=== PATIENT | male | born 1965 | race Caucasian/White ===

== ENCOUNTER 2019-01-22 11:12 | Emergency (ER) | payer MEDICARE ==
[2019-01-22] MEDS ORDERED: Ketorolac 30 MG/ML SDV IM ONE (12:14)
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
[2019-01-22 20:44] VITALS: BP 175/98
== END 2019-01-22 14:17 | disposition home or self-care (01) ==
LOC: FB.ED 11:12
DX: M54.42 Lumbago with sciatica, left side (principal); F17.210 Nicotine dependence, cigarettes, uncomplicated; J44.9 Chronic obstructive pulmonary disease, unspecified; G89.29 Other chronic pain; Z79.899 Other long term (current) drug therapy; Z88.8 Allergy status to other drugs, medicaments and biological substances
CPT/HCPCS: 36415; 81001; 85379; 86140; 87086; 96372; 99283; J1885

== ENCOUNTER 2019-01-24 17:09 | Emergency (ER) | payer MEDICARE ==
[2019-01-24] MEDS ORDERED: HYDROmorphone 2 MG/ML SDV IM ONE (17:41)
[2019-01-24] MEDS ORDERED: Ondansetron 4 MG Tab.DIS PO SCH (17:45)
--- NOTE | 2019-01-24 17:53 | EDM.PDOC ---
ED HPI GENERAL MEDICAL PROBLEM - General Chief Complaint: Lower Extremity Injury/Pain Stated Complaint: PAIN Time Seen by Provider: 01/24/19 17:10 Source of Information: Reports: Patient History Limitations: Reports: No Limitations - History of Present Illness INITIAL COMMENTS - FREE TEXT/NARRATIVE: Cruz is a 53-year-old man was seen by myself 01/22/19 for 10/10 back pain that radiates down his left leg. Pain has been chronic and was exacerbated 2 weeks ago and progressively got worse. He was seen by Dr. Meadows last week and physical therapy was prescribed. On Saturday01/21/19 patient was seen in physical therapy. His back pain has not improved and it got much worse. Onset saw ED and he was treated with tramadol and advised to use NSAIDs and follow with Dr. Meadows 7 days. Pain has not improved he returns this evening because has more back pain. He has no loss of sensation in his left lower extremity. He has good urine continence. It's difficult for him to walk because the severe pain in left leg. He has avoided walking because the pain relates down his left leg to his heel. He does not abuse drugs. No history of aneurysm. He is a smoker. 1ppd. left ankle, tailbone, lower back and hip Pain Score (Numeric/FACES): 10 - Related Data Allergies Allergy/AdvReac Type Severity Reaction Status Date / Time aspirin AdvReac Intermediate Dizziness Verified 01/24/19 17:14 Home Meds: Home Meds Acetaminophen [Tylenol Extra Strength] 1,000 mg PO ASDIRECTED PRN 04/06/15 [ History] Ascorbic Acid [Vitamin C] 1,000 mg PO DAILY 04/06/15 [History] Cyclobenzaprine [Flexeril] 10 mg PO BEDTIME PRN 04/06/15 [History] Multivitamin with Minerals [Multiple Vitamin] 1 tab PO DAILY 04/06/15 [History] Omeprazole 20 mg PO DAILY 04/06/15 [History] Venlafaxine [Effexor] 150 mg PO BEDTIME 04/06/15 [History] Vitamin B Complex [B Complex] 1 each PO 1800 04/06/15 [History] Ibuprofen 600 mg PO TID PRN 01/22/19 [History] Ketorolac [Toradol] 10 mg PO Q6H PRN #16 tab 01/22/19 [Rx] atorvaSTATin [Lipitor] 20 mg PO BEDTIME 01/22/19 [History] predniSONE [Prednisone] 40 mg PO DAILY #10 tablet 01/22/19 [Rx] traMADol [Ultram] 50 mg PO Q4H PRN #30 tab 01/22/19 [Rx] Past Medical History Cardiovascular History: Reports: High Cholesterol Respiratory History: Reports: Other (See Below) Other Respiratory History: chronic smoker 1 pack fopr 40 years Gastrointestinal History: Reports: GERD Musculoskeletal History: Reports: Arthritis, Fibromyalgia, Other (See Below) Other Musculoskeletal History: tendonitis bilat feet Neurological History: Reports: Concussion, Migraines, Seizure Other Neuro History: States seizures from anxiety. Psychiatric History: Reports: Anxiety, Depression, Panic Attack, Suicidal Ideation - Infectious Disease History Infectious Disease History: Reports: Chicken Pox - Past Surgical History GI Surgical History: Reports: Colonoscopy, EGD, Hernia Repair/Other Musculoskeletal Surgical History: Reports: Arthroscopic Knee Other Musculoskeletal Surgeries/Procedures:: L knee scope Social & Family History - Family History Family Medical History: Noncontributory - Tobacco Use Smoking Status *Q: Current Every Day Smoker Years of Tobacco use: 40 Packs/Tins Daily: 1 - Caffeine Use Caffeine Use: Reports: Coffee, Soda - Recreational Drug Use Recreational Drug Use: Yes Recreational Drug Type: Reports: Marijuana/Hashish Review of Systems - Review of Systems Review Of Systems: ROS reveals no pertinent complaints other than HPI. ED EXAM, GENERAL - Physical Exam Exam: See Below Free Text/Narrative:: patient is an asthenic man with decreased muscle mass prominent smoking order unshaven properly dressed in moderate discomfort. He sitting in a wheelchair and attended by his sister. His sister notes that he had assistance of a friend to help him get out of the house into the car. He is unable to place weight on his left foot because the extreme low back pain that radiates to his left leg. He denies any sensory changes in his lower extremity on the left side. Exam Limited By: No Limitations General Appearance: Alert, Moderate Distress Eye Exam: Bilateral Eye: Normal Inspection Ears: Normal External Exam, Normal TMs Throat/Mouth: Normal Inspection Head: Atraumatic, Normocephalic Neck: Normal Inspection, Supple, Non-Tender Respiratory/Chest: No Respiratory Distress, Lungs Clear, Normal Breath Sounds, No Accessory Muscle Use, Chest Non-Tender Cardiovascular: Normal Peripheral Pulses, Regular Rate, Rhythm, No Edema, No Gallop, No JVD, No Murmur, Other (Trace /1+ edema left lower extremity) Peripheral Pulses: 1+: Radial (L), Radial (R) GI/Abdominal: Normal Bowel Sounds, Soft, Non-Tender, No Organomegaly, No Distention, No Abnormal Bruit (Male) Exam: Deferred Rectal (Males) Exam: Deferred Extremities: Normal Inspection, Other (Decreased straight left leg raise to 70 with moderate low back discomfort. He is reluctant to extend his leg completely because his pain is low back. Deep tendon reflexes present knee-jerk 1+ ankle jerk hypoactive and symmetrical. Sensory intact lower extremity left side. I attempted to get him up to walk. He can walk with assistance but he favors his left leg causes too much pain in his back and too much pain that radiates down his left leg for him to stand on the left leg) Neurological: Abnormal Gait, Other Psychiatric: Normal Affect, Normal Mood Skin Exam: Warm, Dry, Intact, Normal Color, No Rash Course - Vital Signs Last Recorded V/S: Last Vital Signs Temp 36.4 C 01/24/19 17:15 Pulse 84 01/24/19 17:15 Resp 16 01/24/19 17:15 BP 191/97 H 01/24/19 17:15 Pulse Ox 98 01/24/19 17:15 - Orders/Labs/Meds Orders: Active Orders 24 hr Category Date Time Status Ondansetron [Zofran ODT] Med 01/24/19 17:45 Ordered 4 mg PO Q8H Medication Orders Ondansetron HCl (Zofran Odt) 4 mg PO Q8H [facility] Meds: Medications Generic Name Dose Route Start Last Admin Trade Name Freq PRN Reason Stop Dose Admin Ondansetron HCl 4 mg 01/24/19 17:45 Zofran Odt PO Q8H LES Discontinued Medications Generic Name Dose Route Start Last Admin Trade Name Freq PRN Reason Stop Dose Admin Hydromorphone HCl 2 mg 01/24/19 17:41 Dilaudid IM 01/24/19 17:42 ONETIME ONE Departure - Departure Time of Disposition: 17:45 (Low back pain with probable herniated L5-S1 disc.Needs MRI to validate clinical impression. Patient was treated with a shot of Dilaudid 2 mg IM and Zofran for nausea. Dismissed with hydrocodone 8 tablets. Also prescription for Tegaderm patch 21 mg and Nicorette lozenges I advised him if he is going to need surgery he should not be smoking and his lungs are will need her hygiene to diminish potential respiratory complications of surgery.) Disposition: Home, Self-Care 01 Condition: Fair Clinical Impression: Herniated lumbar intervertebral disc, Smoker, Low back pain radiating down leg COPD (chronic obstructive pulmonary disease) Qualifiers: COPD type: unspecified COPD Qualified Code(s): J44.9 - Chronic obstructive pulmonary disease, unspecified - Discharge Information Referrals: Lloyd Meadows MD [Primary Care Provider] - Forms: ED Department Discharge Additional Instructions: Make an appointment to see her doctor Saturday and perhaps arrangements can be made for an MRI this next week You have been given prescription for hydrocodone to get through the pain of this weekend. - My Orders Last 24 Hours: My Active Orders 01/24/19 17:45 Ondansetron [Zofran ODT] 4 mg PO Q8H - Assessment/Plan Last 24 Hours: My Active Orders 01/24/19 17:45 Ondansetron [Zofran ODT] 4 mg PO Q8H
[2019-01-24] MEDS ORDERED: Metoprolol Tartrate 25 MG Tab PO ONE (18:14)
[2019-01-24 18:18] VITALS: BP 180/100
== END 2019-01-24 18:25 | disposition home or self-care (01) ==
LOC: FB.ED 17:09
DX: M51.26 Other intervertebral disc displacement, lumbar region (principal); F17.210 Nicotine dependence, cigarettes, uncomplicated; E78.00 Pure hypercholesterolemia, unspecified; K21.9 Gastro-esophageal reflux disease without esophagitis; F41.9 Anxiety disorder, unspecified; F32.9 Major depressive disorder, single episode, unspecified; Z79.899 Other long term (current) drug therapy
CPT/HCPCS: 96372; 99283; A9270; J1170